=== PATIENT | male | born 1960 | race Caucasian/White ===

== ENCOUNTER 2018-09-28 16:25 | Emergency (ER) | payer OTHER ==
--- NOTE | 2018-09-28 17:33 | PDOC ---
History of Present Illness - General Stated Complaint: Headache Time Seen by Provider: 09/28/18 17:03 History Source: Patient Exam Limitations: No Limitations - History of Present Illness Initial Comments: 09/28/18 17:26 58 yo male pmh brain tumor removed in his early 20s, petit mal seizures and 2 strokes (last stroke was 3 months ago) BIBA from [facility] for a headache. Pt is a poor historian, sister is present who provides part of his story. Patient had a fall with the past stroke leading to left facial trauma and pain/ headaches for the past 3 months. Pain today is on the top of his head without radiation or changes in vision, speech, new one sided weakness or sensory deficits, no confusion and according to the pt and his sister, no need pronounced deficits. Pt has residual left arm and leg weakness, drop foot on the left and facial droop to the left. Pt has received tylenol for his headaches over the last month which have helped resolve his pain. Past History - Past Medical History Allergies/Adverse Reactions: Allergies Allergy/AdvReac Type Severity Reaction Status Date / Time No Known Allergies Allergy Verified 09/28/18 17:40 Home Medications: Ambulatory Orders Aspirin [ASA -] 81 mg PO DAILY 09/28/18 Atorvastatin Ca [Lipitor] 20 mg PO HS 09/28/18 Lamotrigine 100 mg PO DAILY 09/28/18 Losartan Potassium 25 mg PO DAILY 09/28/18 *Physical Exam - Physical Exam General Appearance: Yes: Nourished, Appropriately Dressed. No: Apparent Distress HEENT: positive: EOMI, CAILIN Respiratory/Chest: positive: Lungs Clear, Normal Breath Sounds Cardiovascular: positive: Regular Rhythm, Regular Rate, S1, S2. negative: Edema , JVD, Murmur Vascular Pulses: Dorsalis-Pedis (R): 3+, Doralis-Pedis (L): 3+ Gastrointestinal/Abdominal: positive: Normal Bowel Sounds, Flat, Soft. 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 Right arm and leg 5/5 strength) *DC/Admit/Observation/Transfer - Referrals Referrals: Rashad Hayes MD [Primary Care Provider] - - Patient Instructions - Post Discharge Activity
--- NOTE | 2018-09-28 17:35 | PDOC ---
Attending Attestation - HPI HPI: 09/28/18 17:47 The patient is a 58 year old male, accompanied by sister, with a significant PMH of brain tumor removed in his early 20s, petit mal seizures and 2 strokes ( last stroke was 3 months ago), who presents to the emergency department via EMS from [facility] with a worsening headache. The patient states he has had a headache since approx his last CVA 3 months ago. The patient states the headache is located on top of his head, non radiating, with no exacerbating or alleviating factors. The patient denies chest pain, shortness of breath and dizziness. Denies fever, chills, nausea, vomit, diarrhea and constipation. Denies dysuria, frequency, urgency and hematuria. Allergies: NKA Documentation prepared by Kaushal Bhakta, acting as biomedical technician for Arpit Chou MD. <Kaushal Bhakta - Last Filed: 09/28/18 17:47> - Resident Resident Name: Tunde Saeed - ED Attending Attestation I have performed the following: I have examined & evaluated the patient, The case was reviewed & discussed with the resident, I agree w/resident's findings & plan, Exceptions are as noted - Physicial Exam PE: 09/28/18 20:35 Patient is awake and alert, in no distress + Left craniotomy scar is noted PERRLA, EOMI Left hemiparesis is noted Gait deferred - Medical Decision Making 09/28/18 20:36 58-year-old male with history of craniotomy, seizure disorder presents with a worsening headache. CT shows right subacute subdural hematoma with a component of acute hemorrhage with effacement of the right lateral ventricle and midline shift. It appears larger than the CT performed at [facility] one month previously. Case discussed with neurosurgery. Will transfer tomorrow [facility] for higher acuity care. No indication for intubation or mannitol at this time. <Arpit Chou - Last Filed: 09/28/18 20:37>
[2018-09-28] MEDS ORDERED: ACETAMINOPHEN 500 MG TABLET (FP) PO ONE (17:40)
[2018-09-28] MEDS ORDERED: ACETAMINOPHEN 325 MG TABLET (FP) ONE (17:45)
[2018-09-28 17:57] VITALS: BMI 25.8
--- NOTE | 2018-09-28 19:29 | PDOC ---
*Physical Exam - Vital Signs Last Vital Signs Temp Pulse Resp BP Pulse Ox 98.0 F 60 16 104/62 97 09/28/18 16:30 09/28/18 16:30 09/28/18 16:30 09/28/18 16:30 09/28/18 16:30 ED Treatment Course - Medications Given in the ED: ED Medications Discontinued Medications Generic Name Dose Route Start Last Admin Trade Name Gretchen PRN Reason Stop Dose Admin Acetaminophen 975 mg 09/28/18 17:40 09/28/18 17:53 Tylenol - PO 09/28/18 17:41 975 mg ONCE ONE Administration Medical Decision Making - Medical Decision Making 09/28/18 19:[address] Saeed. 58 year old male with past medical history of CVA three months ago. Admitted at [facility]. Patient reported residual left sided weakness and facial droop, came in for headache. Head CT scan done to rule out stroke. Tylenol given for headache, patient reported improvement. 09/28/18 20:[address] scan revealed 1.4cm subdural hematoma, with some acute bleeding. Midline shift noted as well. Called [facility] radiology dept for CT comparison done at the time of admission 3 months ago. Reported R hygroma 6mm with no mass effect. Neurosurgery radiation oncologist consulted (Dr. Dudley), recommended patient to be transferred to [facility]. *DC/Admit/Observation/Transfer - Referrals Referrals: Rashad Hayes MD [Primary Care Provider] - - Patient Instructions - Post Discharge Activity
[2018-09-28 20:19] VITALS: TEMP 97.3
[2018-09-28] MEDS ORDERED: levETIRAcetam 500 MG/5 ML INJECTION VIAL IVPB ONE ×2 (20:55→21:13)
[2018-09-28 21:14] LABS: EOS % 3.4 % (0-4.5); HEMATOCRIT 37.8 % (35.4-49); HEMOGLOBIN 13.1 GM/dL (11.7-16.9); LYMPH % 26.2 % (8-40); MCHC 34.7 g/dl (32.0-35.9); MEAN CELL VOLUME 92.1 fl (80-96); MEAN PLT VOLUME 8.2 fl (7.5-11.1); MONO % 9.9 % (3.8-10.2); NEUT % 59.5 % (42.8-82.8); PLATELET COUNT 277 K/MM3 (134-434); RDW 15.2 % (11.9-15.9); WHITE BLOOD COUNT 6.9 K/mm3 (4.0-10.0)
[2018-09-28 21:23] VITALS: BP 143/80; PULSE 60
[2018-09-28 21:25] LABS: INR 1.1 (0.83-1.09)
[2018-09-28 21:43] LABS: ALBUMIN 3.7 g/dl (3.4-5.0); ALK PHOS 105 U/L (45-117); ANION GAP 6 MMOL/L (8-16); BILIRUBIN,TOTAL 0.3 mg/dL (0.2-1); BLOOD UREA NITROGEN 31 mg/dL (7-18); CALCIUM 8.9 mg/dL (8.5-10.1); CHLORIDE 107 mmol/L (98-107); CO2 29 mmol/L (21-32); CREATININE 1.9 mg/dL (0.55-1.3); GLUCOSE,RANDOM 93 mg/dL (74-106); POTASSIUM 4.2 mmol/L (3.5-5.1); SGOT/AST 12 U/L (15-37); SGPT/ALT 35 U/L (13-61); SODIUM 142 mmol/L (136-145); TOT PROT 7.1 g/dl (6.4-8.2)
--- NOTE | 2018-09-29 10:15 | EKG ---
Test Reason : Blood Pressure : / mmHG Vent. Rate : 057 BPM Atrial Rate : 057 BPM P-R Int : 132 ms QRS Dur : 076 ms QT Int : 400 ms P-R-T Axes : 047 000 045 degrees QTc Int : 389 ms SINUS BRADYCARDIA OTHERWISE NORMAL ECG NO PREVIOUS ECGS AVAILABLE Confirmed by YANET DENTON MD ([id number]) on 09/29/2018 10:15:14 AM Referred By: Confirmed By:YANET DENTON MD
== END 2018-09-28 21:45 | disposition short-term general hospital (02) ==
LOC: JER 16:25
PROC: 3E033GC Introduction of Other Therapeutic Substance into Peripheral Vein, Percutaneous Approach (ICD-10-PCS; principal; 2018-09-28)
DX: I62.00 Nontraumatic subdural hemorrhage, unspecified (principal); G40.909 Epilepsy, unspecified, not intractable, without status epilepticus; I69.398 Other sequelae of cerebral infarction; Z86.011 Personal history of benign neoplasm of the brain
CPT/HCPCS: 36415; 70450-TC; 71045-TC-FY; 80053; 85025; 85610; 93005; 93010; 96374; 99282-25

== ENCOUNTER 2020-10-19 15:36 | Emergency (ER) | payer OTHER ==
[2020-10-19 15:40] VITALS: BP 103/64; PULSE 68; TEMP 97.8; BMI 25.1
[2020-10-19] MEDS ORDERED: ACETAMINOPHEN 1000 MG/100 ML VIAL (NON FORMULARY) IVPB ONE (16:51)
[2020-10-19 18:00] LABS: BASO % 0.7 % (0-2.0); EOS % 2.8 % (0-4.5); HEMATOCRIT 38.5 % (35.4-49); HEMOGLOBIN 13.1 GM/dL (11.7-16.9); LYMPH % 21.2 % (8-40); MCH 30.9 pg (25.7-33.7); MCHC 34.1 g/dl (32.0-35.9); MEAN CELL VOLUME 90.6 fl (80-96); MONO % 8.8 % (3.8-10.2); NEUT % 66.5 % (42.8-82.8); PLATELET COUNT 247 K/MM3 (134-434); RBC 4.25 M/mm3 (4.00-5.60); RDW 14.1 % (11.9-15.9); WHITE BLOOD COUNT 6.6 K/mm3 (4.0-10.0)
[2020-10-19 18:06] LABS: INR 1.13 (0.83-1.09); PROTHROMBIN TIME (PATIENT) 13.6 SEC (9.7-13.0)
[2020-10-19 18:09] LABS: ACTIVATED PTT 31.3 SECONDS (25.2-36.5)
[2020-10-19 18:18] LABS: CHLORIDE 106 mmol/L (98-107); POTASSIUM 4.1 mmol/L (3.5-5.1); SODIUM 139 mmol/L (136-145)
[2020-10-19 18:20] LABS: CALCIUM 8.7 mg/dL (8.5-10.1)
[2020-10-19 18:21] LABS: ALBUMIN 3.6 g/dl (3.4-5.0); ANION GAP 3 MMOL/L (8-16); BLOOD UREA NITROGEN 20.2 mg/dL (7-18); CO2 30 mmol/L (21-32); GLUCOSE,RANDOM 102 mg/dL (74-106)
[2020-10-19 18:23] LABS: SGPT/ALT 31 U/L (13-61)
[2020-10-19 18:23] LABS: EPI CELLS 10 /uL (0-25.1); HYALINE CASTS 3 /uL (0-3.1); PH,URINE 5.5 (5.0-8.0); URINE APPEARANCE CLEAR; URINE BACTERIA 5 /uL (0-1359); URINE BILIRUBIN NEGATIVE (NEGATIVE); URINE COLOR YELLOW; URINE GLUCOSE (UA) NEGATIVE (NEGATIVE); URINE KETONE NEGATIVE (NEGATIVE); URINE LEUK ESTERASE NEGATIVE (NEGATIVE); URINE NITRITE NEGATIVE (NEGATIVE); URINE PROTEIN 2+ (NEGATIVE); URINE RBC 54 /uL (0-23.9); URINE UROBILINOGEN 0.2 mg/dL (0.2-1.0); URINE WBC 6 /uL (0-25.8)
[2020-10-19 18:24] LABS: CREATININE 1.8 mg/dL (0.55-1.3); SGOT/AST 18 U/L (15-37)
[2020-10-19 18:25] LABS: BILIRUBIN,TOTAL 0.3 mg/dL (0.2-1)
[2020-10-19 18:26] LABS: ALK PHOS 106 U/L (45-117)
[2020-10-19] MEDS ORDERED: ACETAMINOPHEN INJECTION 100 ML IVPB ONE (18:34)
[2020-10-19] MEDS ORDERED: SODIUM CHLORIDE 1,000 ML IV STA (18:38)
== END 2020-10-19 21:03 | disposition home or self-care (01) ==
LOC: JER 15:36 → SUPCPDRO 15:36 → JER 21:03
PROC: 3E033NZ Introduction of Analgesics, Hypnotics, Sedatives into Peripheral Vein, Percutaneous Approach (ICD-10-PCS; principal; 2020-10-19)
PROC: 3E0337Z Introduction of Electrolytic and Water Balance Substance into Peripheral Vein, Percutaneous Approach (ICD-10-PCS; 2020-10-19)
DX: R53.1 Weakness (principal)
CPT/HCPCS: 36415; 70450-TC; 71045-TC-FY; 72170-TC-FY; 73070-TC-RT-FY; 80053; 81003; 82550; 82553; 83735; 84484; 85025; 85610; 85730; 87086; 93005; 93010; 99285-25; J0131

== ENCOUNTER 2023-07-26 21:03 | Inpatient (IN) | payer OTHER ==
[2023-07-26 23:27] LABS: BASO % 0.9 % (0-2.0); EOS % 0.9 % (0-4.5); HEMATOCRIT 41.7 % (35.4-49); HEMOGLOBIN 14.6 GM/dL (11.7-16.9); LYMPH % 13.8 % (8-40); MCH 30.6 pg (25.7-33.7); MEAN CELL VOLUME 87.4 fl (80-96); MEAN PLT VOLUME 7.4 fl (7.5-11.1); MONO % 15.7 % (3.8-10.2); NEUT % 68.7 % (42.8-82.8); PLATELET COUNT 321 10^3/uL (134-434); RBC 4.77 M/mm3 (4.00-5.60); RDW 14.6 % (11.9-15.9); WHITE BLOOD COUNT 7.8 K/mm3 (4.0-10.0)
[2023-07-26 23:34] LABS: INR 1.2 (0.83-1.09); PROTHROMBIN TIME (PATIENT) 13.9 SEC (9.7-13.0)
[2023-07-26 23:37] LABS: ACTIVATED PTT 32.2 SECONDS (25.2-36.5)
[2023-07-26 23:50] LABS: POTASSIUM 4.6 mmol/L (3.5-5.1)
[2023-07-26 23:53] LABS: ALBUMIN 3.4 g/dl (3.4-5.0); CALCIUM 8.4 mg/dL (8.5-10.1)
[2023-07-26 23:54] LABS: BLOOD UREA NITROGEN 16.1 mg/dL (7-18)
[2023-07-26 23:57] LABS: CREATININE 1.7 mg/dL (0.55-1.3)
[2023-07-26 23:58] LABS: BILIRUBIN,TOTAL 0.3 mg/dL (0.2-1); TOT PROT 7.4 g/dl (6.4-8.2)
[2023-07-27 00:36] LABS: LACTIC ACID 2.6 mmol/L (0.4-2.0)
[2023-07-27 00:52] LABS: EPI CELLS 1 /uL (0-25.1); HYALINE CASTS 0 /uL (0-3.1); URINE APPEARANCE CLEAR; URINE BACTERIA 5 /uL (0-1359); URINE BILIRUBIN NEGATIVE (NEGATIVE); URINE COLOR YELLOW; URINE GLUCOSE (UA) NEGATIVE (NEGATIVE); URINE KETONE NEGATIVE (NEGATIVE); URINE LEUK ESTERASE NEGATIVE (NEGATIVE); URINE NITRITE NEGATIVE (NEGATIVE); URINE PROTEIN 2+ (NEGATIVE); URINE RBC 87 /uL (0-23.9); URINE UROBILINOGEN 0.2 mg/dL (0.2-1.0); URINE WBC 2 /uL (0-25.8)
[2023-07-27 07:19] LABS: CALCIUM 8.6 mg/dL (8.5-10.1)
[2023-07-27 07:20] LABS: ALBUMIN 3.5 g/dl (3.4-5.0); BLOOD UREA NITROGEN 14.4 mg/dL (7-18); MAGNESIUM 1.8 mg/dL (1.8-2.4)
[2023-07-27 07:23] LABS: CREATININE 1.6 mg/dL (0.55-1.3); PHOSPHOROUS 2.8 mg/dL (2.5-4.9)
[2023-07-27 07:24] LABS: BILIRUBIN,TOTAL 0.4 mg/dL (0.2-1); TOT PROT 7.6 g/dl (6.4-8.2)
[2023-07-27] MEDS ORDERED: TAMSULOSIN HCL 0.4 MG CAP ONE (08:59)
[2023-07-27] MEDS ORDERED: ASPIRIN 81 MG CHEWABLE TABLETS ONE (08:59)
[2023-07-27] MEDS ORDERED: amLODIPine BESYLATE 5 MG TABLET (FP) ONE (08:59)
[2023-07-27] MEDS: ASPIRIN 81 MG CHEWABLE TABLETS PO SCH (09:49)
[2023-07-27] MEDS: amLODIPine BESYLATE 5 MG TABLET (FP) PO SCH (09:49)
[2023-07-27] MEDS: TAMSULOSIN HCL 0.4 MG CAP PO SCH (09:49)
[2023-07-27] MEDS: FINASTERIDE 5 MG TABLET (FP) PO SCH (10:15)
[2023-07-27 12:06] LABS: HEMATOCRIT 41.5 % (35.4-49); HEMOGLOBIN 14.5 GM/dL (11.7-16.9); MCH 30.4 pg (25.7-33.7); MCHC 34.9 g/dl (32.0-35.9); MEAN CELL VOLUME 87.1 fl (80-96); MEAN PLT VOLUME 7.3 fl (7.5-11.1); PLATELET COUNT 304 10^3/uL (134-434); RBC 4.76 M/mm3 (4.00-5.60); RDW 14.7 % (11.9-15.9); WHITE BLOOD COUNT 6.2 K/mm3 (4.0-10.0)
[2023-07-27 12:53] LABS: ANISOCYTOSIS 0; HELMET CELLS 0; HOWELL-JOLLY BODIES 0; MACROCYTOSIS 0; OVALOCYTE 0; ROULEAU 0; SICKELED CELLS 0; TARGET CELLS 0; TEAR DROP CELLS 0; TOXIC GRANULATION 0
[2023-07-27 16:38] VITALS: BMI 26.9
[2023-07-27] MEDS: lamoTRIgine 100 MG TABLET PO SCH (22:03)
[2023-07-27] MEDS: ATORVASTATIN CA 20 MG TABLET (FP) PO SCH (22:03)
[2023-07-28 07:40] LABS: HEMOGLOBIN 14.5 GM/dL (11.7-16.9); MCH 30.1 pg (25.7-33.7); MCHC 33.7 g/dl (32.0-35.9); MEAN CELL VOLUME 89.4 fl (80-96); MEAN PLT VOLUME 8.6 fl (7.5-11.1); PLATELET COUNT 269 10^3/uL (134-434); RBC 4.81 M/mm3 (4.00-5.60); RDW 14.4 % (11.9-15.9); WHITE BLOOD COUNT 7.6 K/mm3 (4.0-10.0)
[2023-07-28 09:02] LABS: ANISOCYTOSIS 0; HELMET CELLS 0; HOWELL-JOLLY BODIES 0; MACROCYTOSIS 0; OVALOCYTE 0; ROULEAU 0; SICKELED CELLS 0; TARGET CELLS 0; TEAR DROP CELLS 0; TOXIC GRANULATION 0
[2023-07-28] MEDS: FINASTERIDE 5 MG TABLET (FP) PO SCH (09:27)
[2023-07-28] MEDS: TAMSULOSIN HCL 0.4 MG CAP PO SCH (09:27)
[2023-07-28] MEDS: ASPIRIN 81 MG CHEWABLE TABLETS PO SCH (09:27)
[2023-07-28] MEDS: amLODIPine BESYLATE 5 MG TABLET (FP) PO SCH (09:27)
[2023-07-28] MEDS: lamoTRIgine 100 MG TABLET PO SCH ×2 (09:27→22:24)
[2023-07-28] MEDS ORDERED: PIPERACILLIN/TAZOB 3.375 GM 3.375 GM in DEXTROSE 5%-WATER - 50 ML IVPB SCH (13:15)
[2023-07-28] MEDS: PIPERACILLIN/TAZOB 3.375 GM 3.375 GM in DEXTROSE 5%-WATER - 50 ML IVPB SCH ×2 (13:45→17:25)
[2023-07-28] MEDS ORDERED: SENNOSIDES 8.6MG TABLET (FP) PO PRN (14:25)
[2023-07-28] MEDS ORDERED: POLYETHYLENE GLYCOL (HEALTHYLAX) 3350 17 GM PACKET PO SCH (14:30)
[2023-07-28] MEDS ORDERED: BISACODYL 10 MG SUPP.RECT PR ONE (16:27)
[2023-07-28] MEDS: SENNOSIDES 8.6MG TABLET (FP) PO SCH (22:15)
[2023-07-28] MEDS: POLYETHYLENE GLYCOL (HEALTHYLAX) 3350 17 GM PACKET PO SCH (22:15)
[2023-07-28] MEDS: ATORVASTATIN CA 20 MG TABLET (FP) PO SCH (22:21)
[2023-07-28] MEDS: HEPARIN NA (PORCINE) 5,000 UNITS/ML 1ML VIAL SQ SCH (22:24)
[2023-07-29 00:22] VITALS: RESP 18
[2023-07-29] MEDS: HEPARIN NA (PORCINE) 5,000 UNITS/ML 1ML VIAL SQ SCH ×3 (05:26→22:32)
[2023-07-29] MEDS: POLYETHYLENE GLYCOL (HEALTHYLAX) 3350 17 GM PACKET PO SCH ×3 (05:26→22:30)
[2023-07-29] MEDS: TAMSULOSIN HCL 0.4 MG CAP PO SCH (08:58)
[2023-07-29] MEDS: ASPIRIN 81 MG CHEWABLE TABLETS PO SCH (09:50)
[2023-07-29] MEDS: lamoTRIgine 100 MG TABLET PO SCH ×2 (09:50→22:32)
[2023-07-29] MEDS: amLODIPine BESYLATE 5 MG TABLET (FP) PO SCH (09:52)
[2023-07-29] MEDS: FINASTERIDE 5 MG TABLET (FP) PO SCH (09:52)
[2023-07-29 10:21] LABS: HEMATOCRIT 41.3 % (35.4-49); HEMOGLOBIN 13.8 GM/dL (11.7-16.9); MCH 29.9 pg (25.7-33.7); MCHC 33.6 g/dl (32.0-35.9); MEAN CELL VOLUME 89.1 fl (80-96); MEAN PLT VOLUME 7.7 fl (7.5-11.1); PLATELET COUNT 298 10^3/uL (134-434); RBC 4.63 M/mm3 (4.00-5.60); RDW 14.6 % (11.9-15.9); WHITE BLOOD COUNT 5.5 K/mm3 (4.0-10.0)
[2023-07-29 10:36] LABS: POTASSIUM 3.7 mmol/L (3.5-5.1)
[2023-07-29 10:43] LABS: ALBUMIN 3.1 g/dl (3.4-5.0); BLOOD UREA NITROGEN 25.4 mg/dL (7-18); CALCIUM 8.3 mg/dL (8.5-10.1)
[2023-07-29 10:46] LABS: CREATININE 2.1 mg/dL (0.55-1.3)
[2023-07-29 10:48] LABS: BILIRUBIN,TOTAL 0.4 mg/dL (0.2-1); TOT PROT 6.9 g/dl (6.4-8.2)
[2023-07-29] MEDS ORDERED: SODIUM CHLORIDE 1,000 ML IV SCH (16:45)
[2023-07-29] MEDS: PIPERACILLIN/TAZOB 3.375 GM 3.375 GM in DEXTROSE 5%-WATER - 50 ML IVPB SCH (18:09)
[2023-07-29] MEDS: ATORVASTATIN CA 20 MG TABLET (FP) PO SCH (22:32)
[2023-07-29] MEDS: SENNOSIDES 8.6MG TABLET (FP) PO SCH (22:33)
[2023-07-30] MEDS: PIPERACILLIN/TAZOB 3.375 GM 3.375 GM in DEXTROSE 5%-WATER - 50 ML IVPB SCH ×3 (02:05→17:24)
[2023-07-30] MEDS: POLYETHYLENE GLYCOL (HEALTHYLAX) 3350 17 GM PACKET PO SCH ×3 (05:27→21:44)
[2023-07-30] MEDS: HEPARIN NA (PORCINE) 5,000 UNITS/ML 1ML VIAL SQ SCH ×3 (05:28→21:36)
[2023-07-30 08:16] LABS: BASO % 1.4 % (0-2.0); EOS % 4.7 % (0-4.5); HEMATOCRIT 39.4 % (35.4-49); HEMOGLOBIN 13.7 GM/dL (11.7-16.9); MCH 30.4 pg (25.7-33.7); MCHC 34.7 g/dl (32.0-35.9); MEAN CELL VOLUME 87.6 fl (80-96); MEAN PLT VOLUME 7.6 fl (7.5-11.1); MONO % 14.9 % (3.8-10.2); PLATELET COUNT 277 10^3/uL (134-434); RDW 14.6 % (11.9-15.9); WHITE BLOOD COUNT 5.1 K/mm3 (4.0-10.0)
[2023-07-30 08:34] LABS: CALCIUM 7.9 mg/dL (8.5-10.1)
[2023-07-30 08:35] LABS: ALBUMIN 2.9 g/dl (3.4-5.0); BLOOD UREA NITROGEN 20.6 mg/dL (7-18)
[2023-07-30 08:38] LABS: CREATININE 1.9 mg/dL (0.55-1.3)
[2023-07-30 08:39] LABS: BILIRUBIN,TOTAL 0.6 mg/dL (0.2-1); TOT PROT 6.5 g/dl (6.4-8.2)
[2023-07-30] MEDS: FINASTERIDE 5 MG TABLET (FP) PO SCH (10:42)
[2023-07-30] MEDS: lamoTRIgine 100 MG TABLET PO SCH ×2 (10:42→21:37)
[2023-07-30] MEDS: amLODIPine BESYLATE 5 MG TABLET (FP) PO SCH (10:42)
[2023-07-30] MEDS: ASPIRIN 81 MG CHEWABLE TABLETS PO SCH (10:42)
[2023-07-30] MEDS: TAMSULOSIN HCL 0.4 MG CAP PO SCH (10:42)
[2023-07-30] MEDS: ATORVASTATIN CA 20 MG TABLET (FP) PO SCH (21:37)
[2023-07-30] MEDS: SENNOSIDES 8.6MG TABLET (FP) PO SCH (21:37)
[2023-07-31] MEDS: PIPERACILLIN/TAZOB 3.375 GM 3.375 GM in DEXTROSE 5%-WATER - 50 ML IVPB SCH ×2 (01:56→09:28)
[2023-07-31] MEDS: HEPARIN NA (PORCINE) 5,000 UNITS/ML 1ML VIAL SQ SCH ×2 (05:47→16:50)
[2023-07-31] MEDS: POLYETHYLENE GLYCOL (HEALTHYLAX) 3350 17 GM PACKET PO SCH ×2 (05:51→16:50)
[2023-07-31] MEDS: ASPIRIN 81 MG CHEWABLE TABLETS PO SCH (09:28)
[2023-07-31] MEDS: amLODIPine BESYLATE 5 MG TABLET (FP) PO SCH (09:28)
[2023-07-31] MEDS: lamoTRIgine 100 MG TABLET PO SCH (09:28)
[2023-07-31] MEDS: TAMSULOSIN HCL 0.4 MG CAP PO SCH (09:29)
[2023-07-31] MEDS: FINASTERIDE 5 MG TABLET (FP) PO SCH (09:29)
[2023-07-31 09:48] LABS: POTASSIUM 3.9 mmol/L (3.5-5.1)
[2023-07-31 10:03] LABS: CALCIUM 8.5 mg/dL (8.5-10.1)
[2023-07-31 10:04] LABS: ALBUMIN 3.1 g/dl (3.4-5.0); BLOOD UREA NITROGEN 14.7 mg/dL (7-18); CREATININE 1.9 mg/dL (0.55-1.3)
[2023-07-31 10:06] LABS: BILIRUBIN,TOTAL 0.5 mg/dL (0.2-1)
[2023-07-31 17:49] VITALS: BP 136/69; PULSE 71; TEMP 97.5
== END 2023-07-31 14:11 | disposition home or self-care (01) | DRG 689 ==
LOC: JER 21:03 → JERBED 07-27 01:38 → J4W 07-27 15:14 → J5S 07-28 21:30
PROVIDERS: ADMIT Internal Medicine
DX: N39.0 Urinary tract infection, site not specified (principal); G93.41 Metabolic encephalopathy; Q61.3 Polycystic kidney, unspecified; I69.354 Hemiplegia and hemiparesis following cerebral infarction affecting left non-dominant side; N18.30 Chronic kidney disease, stage 3 unspecified; E78.5 Hyperlipidemia, unspecified; N40.1 Benign prostatic hyperplasia with lower urinary tract symptoms; R56.9 Unspecified convulsions; G93.89 Other specified disorders of brain; R33.9 Retention of urine, unspecified; K59.00 Constipation, unspecified; I12.9 Hypertensive chronic kidney disease with stage 1 through stage 4 chronic kidney disease, or unspecified chronic kidney disease; R31.29 Other microscopic hematuria
CPT/HCPCS: 0241U-QW; 36415; 70450-TC; 70496-TC; 70498-TC; 71045-TC-FY; 76775-TC; 80053; 80061; 81003; 82962; 83036; 83605; 83735; 84100; 84484; 85025; 85027; 85610; 85730; 86850; 86900; 86901; 87086; 87186; 93005; 93010; 95816; 97116-GP; 97162-GP; 99285-25; J1644; Q9967

== ENCOUNTER 2024-12-04 03:58 | Day surgery (SDC) | payer OTHER ==
[2024-11-28 17:31] VITALS: BMI 26.6
[2024-12-04] MEDS ORDERED: LIDOCAINE HCL/PF 2% SDV 5ML VIAL ONE (08:27)
[2024-12-04] MEDS ORDERED: PROPOFOL 20 ML ONE (08:27)
[2024-12-04] MEDS ORDERED: MIDAZOLAM HCL 2 MG/2 ML SINGLE DOSE VIAL ONE (08:28)
[2024-12-04] MEDS ORDERED: KETOROLAC TROMETHAMINE 30 MG/1 ML VIAL ONE (10:00)
[2024-12-04] MEDS ORDERED: ONDANSETRON 4 MG/2 ML VIAL ONE (10:00)
[2024-12-04] MEDS ORDERED: DEXAMETHASONE SOD PHOSPHATE 4 MG/1 ML VIAL ONE (10:00)
[2024-12-04] MEDS: ceFAZolin SODIUM 1 GM VIAL IVPB ONE (10:05)
[2024-12-04] MEDS ORDERED: ceFAZolin SODIUM 1 GM VIAL ONE (10:05)
[2024-12-04] MEDS ORDERED: GENTAMICIN SO4 80 MG/2 ML VIAL ONE (10:06)
[2024-12-04] MEDS ORDERED: oxyCODONE HCL 5 MG TABLET PO PRN ×2 (10:50)
[2024-12-04] MEDS ORDERED: PROMETHAZINE HCL 25 MG/1 ML VIAL IVPB PRN (10:50)
[2024-12-04] MEDS ORDERED: ONDANSETRON 4 MG/2 ML VIAL IVPUSH PRN (10:50)
[2024-12-04] MEDS ORDERED: LACTATED RINGERS SOLUTION 1,000 ML IV SCH (11:00)
[2024-12-04] MEDS: ACETAMINOPHEN 1000 MG/100 ML BAG IVPB ONE (11:12)
[2024-12-04 15:26] VITALS: BP 124/67; PULSE 69; RESP 18; TEMP 97.6
[2024-12-11 18:06] LABS: CA OXALATE MONOHYDR. 100 % (.); SIZE 3x2 mm (.); WEIGHT 9 mg (.)
== END 2024-12-04 13:25 | disposition home or self-care (01) ==
LOC: JASU-SURG 03:58
PROVIDERS: ATTEND Urology
PROC: 0T778DZ Dilation of Left Ureter with Intraluminal Device, Via Natural or Artificial Opening Endoscopic (ICD-10-PCS; 2024-12-04)
PROC: BT1DYZZ Fluoroscopy of Right Kidney, Ureter and Bladder using Other Contrast (ICD-10-PCS; 2024-12-04)
PROC: 0TC78ZZ Extirpation of Matter from Left Ureter, Via Natural or Artificial Opening Endoscopic (ICD-10-PCS; principal; 2024-12-04 10:00)
DX: N20.1 Calculus of ureter (principal)
CPT/HCPCS: 36415; 76000-TC-FY; 82360; 88300-TC; 94760; C1758; C2617; J0131